=== PATIENT | female | born 1940 ===

== ENCOUNTER 2023-04-19 11:31 | Inpatient (IN) | payer OTHER ==
[~2023-04-19] VITALS: Ht 160 cm; Wt 63.0 kg
[2023-04-24] MEDS ORDERED: NORVASC10 MG PO (08:16)
[2023-04-24] MEDS ORDERED: VALSARTAN-HCTZ1 EAC4 PO (08:17)
[2023-04-28] MEDS ORDERED: HYOSCYAMINE0.125 M1 SL (10:40)
[2023-04-28] MEDS ORDERED: TRAM1TAB98 PO (10:40)
[2023-04-28] MEDS ORDERED: NYSTATIN/TRIAMC15 GM TOP (10:42)
[2023-04-28] MEDS ORDERED: INTESTINEX680 M1 PO (10:43)
[2023-04-28] MEDS ORDERED: PYRIDIUM DS200 MG PO (10:43)
== END 2023-04-28 12:10 | disposition home or self-care (01) | DRG 331 ==
LOC: SURG 04-23 07:38 → SURH 04-25 11:30 → SURG 04-28 12:10
PROVIDERS: Internal Medicine Geriatric Medicine; ADMIT Surgery; ATTEND Surgery
PROC: 07BB4ZX Excision of Mesenteric Lymphatic, Percutaneous Endoscopic Approach, Diagnostic (ICD-10-PCS; 2023-04-25)
PROC: 0DTF4ZZ Resection of Right Large Intestine, Percutaneous Endoscopic Approach (ICD-10-PCS; principal; 2023-04-25 12:15)
DX: C18.0 Malignant neoplasm of cecum (principal); R59.0 Localized enlarged lymph nodes; R19.4 Change in bowel habit